=== PATIENT | female | born 1985 | race Caucasian/White ===

== ENCOUNTER 2023-11-10 12:55 | Emergency (ER) | payer BC, SELFPAY ==
[2023-11-10 13:07] VITALS: BP 136/90
[2023-11-10 13:51] LABS: ALT (SGPT) 16 U/L (0-35); AST (SGOT) 20 U/L (14-36); Albumin 4.6 g/dl (3.5-5.0); Alkaline Phosphatase 83 U/L (38-126); Blood Urea Nitrogen 5 mg/dl (7-17); Calcium 9.3 mg/dl (8.4-10.2); Carbon Dioxide 25 mmol/L (22-30); Chloride 107 mmol/L (98-107); Glucose 106 mg/dl (70-99); Potassium 4.2 mmol/L (3.5-5.1); Sodium 138 mmol/L (135-145); Total Protein 7.9 g/dl (6.3-8.2); eGFR > 60.00
[2023-11-10 13:56] LABS: COVID-19 Antigen Negative (Negative)
[2023-11-10 14:01] LABS: % Basophils 0.3 % (0-2); % Eosinophils 0.3 % (0-6); % Immature Granulocytes 0.2 % (0-0.5); % Lymphocytes 5.1 % (20.5-51.1); % Monocytes 6.9 % (1.7-9.3); % Neutrophils 87.2 % (42.2-75.2); Absolute Lymphocytes 0.5 10^3/uL (1.2-3.4); Absolute Monocytes 0.6 10^3/uL (0.1-0.6); Absolute Neutrophils 7.6 10^3/uL (1.4-6.5); Hematocrit 40.9 % (37.0-47.0); Hemoglobin 14.3 g/dL (12.0-16.0); Mean Corpuscular Hgb 30.7 pg (27.0-31.0); Mean Corpuscular Volume 87.8 fL (81.0-99.0); Mean Platelet Volume 9.5 fL (7.4-10.4); Nucleated Red Blood Cells % 0 %; Platelet Count 251 10^3/uL (130-400); Red Blood Cell Count 4.66 10^6/uL (4.20-5.40); Red Cell Dist. Width 12.1 % (11.5-14.5); White Blood Cell Count 8.8 10^3/uL (4.8-10.8)
[2023-11-10 14:20] LABS: TSH Reflex To Free T4 2.91 uIU/ml (0.47-4.68)
--- NOTE | 2023-11-10 15:30 | ED.GENMED ---
Addendum entered and electronically signed by Richard Bush DO 11/10/23 17:58:
Update
Patient states she feels like when she had bronchitis previously, she is moving good air, reviewed indication for beta agonist she like to hold off due to palpitations which is not unreasonable we will treat her with short taper of steroids
Original Note:
History of Present Illness
General
Chief Complaint: Heart Rate Problem
Source: patient and records
Exam Limitations: none
Time Seen by Provider: 11/10/23 15:14
Nursing documentation reviewed up to this point in time: agreed with
Travel History
Have you had any contact with someone who has COVID-19?: No
Do you have any symptoms of coronavirus? Fever > 100 degrees, chills, cough, shortness of breath, sore throat, loss of taste or smell, muscle aches, or headache?: Yes
Symptoms:: fever
History of Present Illness
History of Present Illness:
[address] contreras, palp on off x 1 year echo, holter, diet changes, felt better
recent fever fatigue increased HR
daughter sick with similar
temp 102 today
no sob
+cough
tickle in throat
cards had mentined bblocker-never prescribed due to patient feeling better
Past History
Past History
ED Past Medical History: None; Negative HTN, Hypercholesterolemia or NIDDM
ED Past Surgical History: None
Social History
Tobacco: Non-smoker
Alcohol: Occasional
Drug: None
Personal:
Living: with family
Employment: Employed
Review of Systems
Review of Systems
All Other Systems: Not applicable
Constitutional: Reports fever, fatigue and chills
Respiratory: Reports cough; Denies hemoptysis
Cardiac: Reports palpitations
ABD/GI: Reports no symptoms
: Reports no symptoms
Musculoskeletal: Reports no symptoms; Denies joint pain or muscle stiffness
Skin: Reports no symptoms
Neurological: Reports weakness; Denies dizzy or numbness
Endocrine: Reports no symptoms
Hematologic/Lymphatic: Reports no symptoms
Psychiatric: Reports no symptoms
Phy Exam
General Physical Exam
General Presentation: mild distress
ENT Exam
ENT Exam: pharyngeal erythema and tonsillar exudate
Cardiovascular Exam
Cardiovascular Exam: tachycardia
Pulmonary Exam
Pulmonary Exam: no respiratory distress and decreased breath sounds
Gastrointestinal Exam
Gastrointestinal Exam: non tender
Musculoskeletal Exam
Musculoskeletal Exam: no edema
Skin Exam
Skin Exam: normal color
Psychiatric Exam
Psychiatric Exam: normal mood/affect
Course
Orders/Labs/Results
Orders:
Orders
11/10/23 13:00
EKG [Electrocardiogram (*1)] Urgent
Reason for Study: Palpitations
EKG- Treatment ONCE
11/10/23 13:30
CMP [Comprehensive Metabolic Panel] Urgent
COVID-19 Antigen Urgent
Source: Nasal Swab
Complete Blood Count/With Diff Urgent
TSH Reflex To Free T4 Urgent
INF RAPID [Influenza A+B Rapid Molecular] Urgent
[place] Source: Nasal Swab
Specimen Description:
11/10/23 15:29
0.9% Sodium Chloride 1000 ml [Nss] 1,000 ml IV BOLUS
Acetaminophen [Tylenol] 1,000 mg PO NOW STA
11/10/23 15:30
CR Chest - 2 Views Urgent
Comment:
Reason For Exam: fever
Abnormal Lab Results
11/10/23
13:30
Absolute Neuts (auto) 7.6 H 10^3/uL
(1.4-6.5)
Absolute Lymphs (auto) 0.5 L 10^3/uL
(1.2-3.4)
Neutrophils % 87.2 H %
(42.2-75.2)
Lymphocytes % 5.1 L %
(20.5-51.1)
BUN 5 L mg/dl
(7-17)
Creatinine 0.5 L mg/dL
(0.6-1.0)
Glucose 106 H mg/dl
(70-99)
11/10/23 13:30
11/10/23 13:30
Vital Signs
Initial and Last Documented VS:
Initial Vital Signs
Temp Pulse BP Pulse Ox
98.4 F 131 136/90 98
11/10/23 13:07 11/10/23 13:07 11/10/23 13:07 11/10/23 13:07
Last Documented Vital Signs
Temp Pulse Resp BP Pulse Ox
100.4 F H 125 18 135/87 99
11/10/23 16:02 11/10/23 16:02 11/10/23 16:02 11/10/23 16:02 11/10/23 16:02
MDM/Problems Addressed
Differential Diagnosis Includes:
palps, af svt fever occult infection
MDM/Problems Addressed:
palp fever
*Radiology
Radiology exam reviewed: preliminary read by ED provider
*Pulse Oximetry
Patient hypoxic: no
*EKG
Interpreted by ED Provider?: Yes
Interpretation: abnormal
Comparison EKG: no comparison EKG present
Heart Rate: 126
Rate: tachycardiac
Rhythm: sinus
Ischemia: non-specific ST changes
*Critical Care Note
Total Time (30-74mins, 75-104mins- exclusive of procedures): Not Applicable
Data Reviewed
Review of Other/Old Records Reveals: Testing
Source: patient
Update Note
Update Note:
doubt PE-tachy in the setting of fever, fatigue, daughter sick with similar
445p pt feeling better p ivf
swabs noted
cxr pending
5:35 PM chest x-ray report noted
ED Attending Note
-
Portions of this chart may have been created with voice recognition software.� Occasional wrong word or��sound alike� substitutions may have occurred due to the inherent limitations of voice recognition software.
Discharge Plan
Departure
Patient Disposition: Home (Routine Discharge)
Date of Disposition: 11/10/23
Time of Disposition: 17:37
Patient with high blood pressure during this ER visit?: No
Condition: Good
Covid-19: Negative COVID-19
Discharge Problem:
Fever, Heart palpitations
Instructions: Fever, Adult (DC), Palpitations (DC)
Prescriptions:
New
ibuprofen 600 mg tablet
600 mg PO Q6H PRN (Reason: fever) Qty: 20 0RF
No Action
vit no.[id number] [ Vitamin] 1 EACH tablet
1 tab PO DAILY
ibuprofen 600 MG tablet
600 mg PO Q6HPRN PRN (Reason: moderate pain/cramps) Qty: 0 0RF
Referrals:
Akbar Heart MD [Family Provider] - Next open appointment
Activity Restrictions/Additional Instructions:
Drink plenty of fluids, alternate Tylenol and ibuprofen
Follow-up with Dr. Moreira after you recover from your current illness
Interventions
Interventions:
*Risk Screen - Suicide Last Done: 11/10/23 15:59
*General Assessment Last Done: 11/10/23 15:59
*Neglect/Abuse Screening Last Done: 11/10/23 15:59
ED- Fall Risk Assessment Last Done: 11/10/23 16:01
*ED COVID-19 Vaccine History Last Done: 11/10/23 13:10
ED- Cardiac Assessment Last Done: 11/10/23 16:01
ED- Pulmonary Assessment Last Done: 11/10/23 16:01
[2023-11-10] MEDS: NSS 1000 IV (15:47)
[2023-11-10] MEDS: TYLENOL 1000 MG PO (15:48)
[2023-11-10 15:58] VITALS: BMI 28.2
[2023-11-10 16:02] VITALS: BP 135/87
[2023-11-10 17:57] VITALS: BP 144/88
[2023-11-10] MEDS: DECADRON 10 MG IV (18:01)
== END 2023-11-10 18:08 | disposition home or self-care (01) ==
LOC: EMR 12:55
PROVIDERS: Emergency Medicine; EMERGENCY PHYSICIAN Emergency Medicine; FAMILY PHYSICIAN Internal Medicine
DX: R00.2 Palpitations (principal); R50.9 Fever, unspecified; R53.83 Other fatigue; R05.9 Cough, unspecified; R53.1 Weakness; K21.9 Gastro-esophageal reflux disease without esophagitis; F41.9 Anxiety disorder, unspecified; Z91.040 Latex allergy status
CPT/HCPCS: 99284; 96374; 96361; 71046; 80053; 84443; 85025; 87502; 87811; 93005

== ENCOUNTER 2024-07-28 13:19 | Emergency (ER) | payer BC, SELFPAY ==
--- NOTE | 2024-07-28 13:24 | ED.GENMED ---
ED Provider Triage
<VISHAL Milton - Last Filed: 07/28/24 13:32>
-
Patient seen by provider in Triage?: Seen in Triage
Attestation: A medical screening examination has been initiated by a qualified medical provider. Based on the assessment performed at this time, it has been determined that an emergent medical condition may exist and the patient has been informed
that further medical evaluation and possible additional diagnostic testing may be needed.
HPI: 38 yr old female w/ hx of symptomatic PVCs ( on beta stacie ) presents with palpitations over the past 36 hrs worse since 10 am yesterday morning. Pt is followed by Debbie RODGERS of cardiology. As directed pt increased dose of
Metoprolol from 37.5 mg to 50 mg daily( took increased dose yesterday ). pt has had s/s at rest and with bending over. Prior to palpitations getting worse pt was sick 2 wks ago ( with cold s/s (covid was negative at that time ) no fevers.
Took Mucinex at that time.
PT is scheduled to fruit or nut picker a holter monitor on Thursday for 48 hr test.
GENERAL: Alert , in no apparent distress
EYE: No visual abnormalities.
NECK: Trachea midline
ENT: No visible abnormalities.
LUNGS: No acute respiratory distress
NEUROLOGICAL: Alert and oriented
SKIN: Skin intact. No visible changes.
MUSCULOSKELETAL: Moving extremities normally
PSYCH: Normal and appropriate interaction.
This is a medical evaluation conducted in person to initiate diagnostic evaluation and provide initial therapeutics. Please see further documentation by the treating clinician.
History of Present Illness
<VISHAL Milton - Last Filed: 07/28/24 13:32>
General
Chief Complaint: Breathing Problem
Time Seen by Provider: 07/28/24 14:06
<Debbie Erazo PA-C - Last Filed: 08/02/24 03:40>
General
Source: patient
Exam Limitations: none
Nursing documentation reviewed up to this point in time: agreed with
History of Present Illness
History of Present Illness:
38-year-old female with a history of palpitations on metoprolol 37.5 mg succinate nightly since November followed [address] Dr. Moreira [facility] presents for palpitations for the last 2 or 3 days. Patient says that she has had palpitations before but
these feel little bit different. She says she is feeling the when she bends over or does any exertion she feels little short of breath with them. Patient says that she has also felt a little lightheaded but has not passed out. She has not quite
had an appetite since noticing these and is feeling anxious but that is because of the symptoms. She does not believe that stress triggered them. She did recently have a URI and just took [id number] Mucinex without the decongestant. She is
otherwise pretty good about avoiding medications and triggers for palpitations like caffeine chocolate and alcohol. Patient is not a smoker. She called the director of education office and has an arranged Holter monitor to be placed in the next couple of
days but was encouraged to come in if she was feeling symptomatic.
Past History
<VISHAL Milton - Last Filed: 07/28/24 13:32>
Past History
ED Past Medical History: None; Negative HTN, Hypercholesterolemia or NIDDM
ED Past Surgical History: None
Social History
Tobacco: Non-smoker
Alcohol: Occasional
Drug: None
Personal:
Living: with family
Employment: Employed
Review of Systems
<Debbie Erazo PA-C - Last Filed: 08/02/24 03:40>
Review of Systems
Allergies reviewed?: Yes
All Other Systems: Not applicable
Phy Exam
<Debbie Erazo PA-C - Last Filed: 08/02/24 03:40>
Physical Exam
Physical Exam:
GENERAL: Alert, mildly anxious
EYE: pupils equal and reactive
NECK: Supple
ENT: o/p clr, mmm.
CARDIAC irregular but sinus, no murmur appreciated
LUNGS: Clear breath sounds bilaterally, no acute respiratory distress, no wheezes/rales/rhonchi
ABDOMEN: Soft, without focal tenderness, no r/g, no cvat, normal bowel sounds
NEUROLOGICAL: Alert and oriented, no focal neuro deficits
SKIN: Warm and dry, skin intact.
MUSCULOSKELETAL: No edema, well perfused. neg jada's sign
PSYCH: mild anxiety
Course
<VISHAL Milton - Last Filed: 07/28/24 13:32>
Orders/Labs/Results
Orders:
Orders
07/28/24 13:20
Electrocardiogram (*1) Urgent
Reason for Study: Shortness of Breath
EKG- Treatment ONCE
07/28/24 13:35
Complete Blood Count/With Diff Urgent
Comprehensive Metabolic Panel Urgent
HCG, Serum Qualitative Screen Urgent
Comment: ADD ON
Magnesium Urgent
Comment: ADD ON
TSH Reflex To Free T4 Urgent
07/28/24 14:46
Add On- LAB Urgent
Tests Added?: magnesium, hcg qualitative serum
07/28/24 15:14
Clonazepam [Klonopin] 0.25 mg PO NOW STA
07/28/24 15:20
D-Dimer Urgent
Troponin I Urgent
07/28/24 15:23
Add On- LAB Urgent
Tests Added?: magnesium and hcg qualitative
Abnormal Lab Results
07/28/24
13:35
WBC 11.3 H 10^3/uL
(4.8-10.8)
Absolute Neuts (auto) 8.4 H 10^3/uL
(1.4-6.5)
Lymphocytes % 19.4 L %
(20.5-51.1)
Glucose 111 H mg/dl
(70-99)
07/28/24 13:35
07/28/24 13:35
Vital Signs
Initial and Last Documented VS:
Initial Vital Signs
Temp Pulse Resp BP Pulse Ox
97.4 F 105 16 151/88 97
07/28/24 13:26 07/28/24 13:26 07/28/24 13:26 07/28/24 13:26 07/28/24 13:26
Last Documented Vital Signs
Temp Pulse Resp BP Pulse Ox
97.4 F 109 14 151/88 95
07/28/24 13:26 07/28/24 16:15 07/28/24 16:15 07/28/24 13:26 07/28/24 16:15
<Debbie Erazo PA-C - Last Filed: 08/02/24 03:40>
Orders/Labs/Results
Orders:
Orders
07/28/24 13:20
Electrocardiogram (*1) Urgent
Reason for Study: Shortness of Breath
EKG- Treatment ONCE
07/28/24 13:35
Complete Blood Count/With Diff Urgent
Comprehensive Metabolic Panel Urgent
HCG, Serum Qualitative Screen Urgent
Comment: ADD ON
Magnesium Urgent
Comment: ADD ON
TSH Reflex To Free T4 Urgent
07/28/24 14:46
Add On- LAB Urgent
Tests Added?: magnesium, hcg qualitative serum
07/28/24 15:14
Clonazepam [Klonopin] 0.25 mg PO NOW STA
07/28/24 15:20
D-Dimer Urgent
Troponin I Urgent
07/28/24 15:23
Add On- LAB Urgent
Tests Added?: magnesium and hcg qualitative
Abnormal Lab Results
07/28/24
13:35
WBC 11.3 H 10^3/uL
(4.8-10.8)
Absolute Neuts (auto) 8.4 H 10^3/uL
(1.4-6.5)
Lymphocytes % 19.4 L %
(20.5-51.1)
Glucose 111 H mg/dl
(70-99)
07/28/24 13:35
07/28/24 13:35
Vital Signs
Initial and Last Documented VS:
Initial Vital Signs
Temp Pulse Resp BP Pulse Ox
97.4 F 105 16 151/88 97
07/28/24 13:26 07/28/24 13:26 07/28/24 13:26 07/28/24 13:26 07/28/24 13:26
Last Documented Vital Signs
Temp Pulse Resp BP Pulse Ox
97.4 F 109 14 151/88 95
07/28/24 13:26 07/28/24 16:15 07/28/24 16:15 07/28/24 13:26 07/28/24 16:15
<Debbie Erazo PA-C - Last Filed: 08/02/24 03:40>
MDM/Problems Addressed
Differential Diagnosis Includes:
anxiety, palpitations, sinus tach, PE
MDM/Problems Addressed:
38 y/o F with h/o palpitations on metoprolol 37.5 mg hs since nov 2023; normal echo
2 days of worsening palpitations and anxiety, feels some sob; mildly lightheaded; no syncope; recent URI 2 weeks ago but resolved and no meds that would trigger;
her hr is anywhere fro [id number] here and she is a little anxious; sinus arrhythmia;
lytes and tsh normal, d dimer also normal
she already has a plan for a holter to be placed on thursday because of these symptoms
but was recommended by cards to inc the metoprolol succ to 50 mg hs;
i spoke with dr. ferrer publications writer who recommended doing the 50 mg in the morning rather than at night
she has not taken it yet today, will have her take it at home, because of how anxious she was, i gave her a dose of xanax whch she sometimes takes and that did help her feel much better
d/c home
<Debbie Erazo PA-C - Last Filed: 08/02/24 03:40>
*Critical Care Note
Total Time (30-74mins, 75-104mins- exclusive of procedures): Not Applicable
ED Attending Note
<VISHAL Milton - Last Filed: 07/28/24 13:32>
-
Portions of this chart may have been created with voice recognition software.� Occasional wrong word or��sound alike� substitutions may have occurred due to the inherent limitations of voice recognition software.
Discharge Plan
Departure
Patient Disposition: Home (Routine Discharge)
Date of Disposition: 07/28/24
Time of Disposition: 16:03
Patient with high blood pressure during this ER visit?: No
Condition: Fair
Covid-19: Not Applicable
Discharge Problem:
Palpitations
Instructions: Arrhythmias (DC), Palpitations ED
Prescriptions:
No Action
vit no.[id number] [ Vitamin] 1 EACH tablet
1 tab PO DAILY
ibuprofen 600 MG tablet
600 mg PO Q6HPRN PRN (Reason: moderate pain/cramps) Qty: 0 0RF
ibuprofen 600 mg tablet
600 mg PO Q6H PRN (Reason: fever) Qty: 20 0RF
methylprednisolone [Medrol ([place])] 4 mg tablets,dose pack
See Rx Instructions .ROUTE .COMPLEX Qty: 21 0RF
Rx Instructions:
orally per package directions
Referrals:
Akbar Heart MD [Family Provider] -
John Melendez DO [Active] - Follow up in 1 week
Activity Restrictions/Additional Instructions:
Your screening blood work looks reassuring. I believe that you are experiencing sinus tachycardia which is not concerning. You can have some arrhythmia which is felt as palpitations. We ruled out a cardiac event and a blood clot. You are not
anemic. Your thyroid is normal.
Per the director of education recommendation they recommend that you do the 50 mg of metoprolol succinate in the morning rather than at night for now. You can take it when you go home, this is not the you can use your Klonopin as needed if you are overly
anxious. Follow-up on Thursday for your monitor. Return for any worse symptoms
Interventions
Interventions:
*Risk Screen - Suicide Last Done: 07/28/24 13:26
*General Assessment Last Done: 07/28/24 13:26
*Neglect/Abuse Screening Last Done: 07/28/24 13:26
ED- Fall Risk Assessment Last Done: 07/28/24 16:38
*ED COVID-19 Vaccine History Last Done: 07/28/24 13:26
*Nursing Disposition Last Done: 07/28/24 16:38
ED- Cardiac Assessment Last Done: 07/28/24 16:00
ED- Pulmonary Assessment Last Done: 07/28/24 16:00
Discharge Date and Time
Discharge Date/Time: 07/28/24 16:39
Print Language: MACANESE
[2024-07-28 13:26] VITALS: BP 151/88
[2024-07-28 13:42] LABS: % Basophils 0.4 % (0-2); % Eosinophils 0.4 % (0-6); % Immature Granulocytes 0.4 % (0-0.5); % Lymphocytes 19.4 % (20.5-51.1); % Monocytes 5.1 % (1.7-9.3); % Neutrophils 74.3 % (42.2-75.2); Absolute Lymphocytes 2.2 10^3/uL (1.2-3.4); Absolute Monocytes 0.6 10^3/uL (0.1-0.6); Absolute Neutrophils 8.4 10^3/uL (1.4-6.5); Hematocrit 41.4 % (37.0-47.0); Hemoglobin 14.3 g/dL (12.0-16.0); Mean Corp Hgb Conc. 34.5 g/dL (33.0-37.0); Mean Corpuscular Hgb 29.9 pg (27.0-31.0); Mean Corpuscular Volume 86.6 fL (81.0-99.0); Mean Platelet Volume 8.8 fL (7.4-10.4); Nucleated Red Blood Cells % 0 %; Platelet Count 325 10^3/uL (130-400); Red Blood Cell Count 4.78 10^6/uL (4.20-5.40); Red Cell Dist. Width 11.9 % (11.5-14.5); White Blood Cell Count 11.3 10^3/uL (4.8-10.8)
[2024-07-28 14:04] LABS: ALT (SGPT) 19 U/L (0-35); AST (SGOT) 23 U/L (14-36); Albumin 4.8 g/dl (3.5-5.0); Alkaline Phosphatase 78 U/L (38-126); Blood Urea Nitrogen 9 mg/dl (7-17); Calcium 9.8 mg/dl (8.4-10.2); Carbon Dioxide 25 mmol/L (22-30); Chloride 102 mmol/L (98-107); Glucose 111 mg/dl (70-99); Potassium 4.5 mmol/L (3.5-5.1); Sodium 141 mmol/L (135-145); Total Bilirubin 0.7 mg/dl (0.2-1.3); Total Protein 7.8 g/dl (6.3-8.2); eGFR > 60.00
[2024-07-28 14:29] LABS: TSH Reflex To Free T4 1.82 uIU/ml (0.47-4.68)
[2024-07-28] MEDS: KLONOPIN 0.25 MG PO (15:26)
[2024-07-28 15:47] LABS: D-Dimer 0.38 ug/mlFEU (0.00-0.50)
[2024-07-28 16:02] LABS: Troponin I < 0.012 ng/ml
[2024-07-28 16:08] LABS: HCG, Serum Qualitative Screen Negative
== END 2024-07-28 16:39 | disposition home or self-care (01) ==
LOC: EMR 13:19
PROVIDERS: Nurse Practitioner; Physician Assistant; EMERGENCY PHYSICIAN Emergency Medicine; FAMILY PHYSICIAN Internal Medicine
DX: R00.2 Palpitations (principal); I49.3 Ventricular premature depolarization; E11.9 Type 2 diabetes mellitus without complications; Z79.899 Other long term (current) drug therapy
CPT/HCPCS: 99283; 80053; 83735; 84443; 84484; 84703; 85025; 85379; 93005

== ENCOUNTER → 2024-10-10 10:12 | Outpatient (REF) | payer BC, SELFPAY | LOC: HWWDC 10:12 | PROVIDERS: ATTENDING PHYSICIAN Obstetrics & Gynecology; FAMILY PHYSICIAN Internal Medicine | DX: Z12.31 Encounter for screening mammogram for malignant neoplasm of breast (principal) | CPT/HCPCS: 77063; 77067 ==

== ENCOUNTER → 2024-10-14 09:54 | Outpatient (REF) | payer BC, SELFPAY | LOC: WDC 09:54 | PROVIDERS: ATTENDING PHYSICIAN Obstetrics & Gynecology; FAMILY PHYSICIAN Internal Medicine | DX: R92.8 Other abnormal and inconclusive findings on diagnostic imaging of breast (principal) | CPT/HCPCS: 76642 ==

== ENCOUNTER → 2025-09-15 16:37 | Outpatient (REF) | payer BC, SELFPAY | LOC: RAD 16:37 | PROVIDERS: ATTENDING PHYSICIAN Obstetrics & Gynecology; FAMILY PHYSICIAN Internal Medicine | DX: R10.20 Pelvic and perineal pain unspecified side (principal) | CPT/HCPCS: 76830; 76856 ==